=== PATIENT | male | born 1975 | race Caucasian/White ===

== ENCOUNTER 2021-08-29 00:18 | Day surgery (SDC) | payer OTHER, SELFPAY ==
[2021-08-21 12:57] VITALS: BMI 25.7
[2021-08-29 09:54] VITALS: BP 106/74; PULSE 84; RESP 18; TEMP 36.4; O2SAT 97
[2021-08-29] MEDS: LACTATED RINGERS 1,000 ML 150 ML IV CONT (10:03)
--- NOTE | 2021-08-29 10:14 | WPDANESEPPF ---
Anes - Initial Pre Proc Eval Procedure: Operation Date: 08/29/21 11:00 Proposed Procedures p Screening Colonoscopy - Perez Goodwin MD Date/Time: 08/29/21 10:14 Surgeon: Perez Goodwin MD Pre Op Diagnosis: family hx of colon ca, neoplasm screening Patient Data Age: 45 Gender: M Height: 1.88 m Weight: 90.3 kg Last Vital Signs Temp 36.4 C L 08/29/21 09:54 Pulse 84 08/29/21 09:54 Resp 18 08/29/21 09:54 BP 106/74 08/29/21 09:54 Pulse Ox 97 08/29/21 09:54 Allergies Allergy/AdvReac Type Severity Reaction Status Date / Time No Known Allergies Allergy Verified 08/29/21 09:52 Home Medications Medication Instructions Recorded Confirmed Type aspirin [Adult Low Dose Aspirin] 81 mg PO DAILY 08/21/21 08/21/21 History atorvastatin 10 mg PO DAILY 08/21/21 08/21/21 History ergocalciferol (vitamin D2) 1,250 mcg PO WEEKLY 08/21/21 08/21/21 History multivit with min-folic acid 1 tablet PO DAILY 08/21/21 08/21/21 History [Adult One Daily Multivitamin] Patient hx anesthesia problems: none Family hx anesthesia problems: none Results Review: All pre-operative results and documents have been reviewed as part of the pre-operative evaluation. [facility] Past Medical History Medical History (Updated 08/29/21 @ 10:14 by Stanley Cheng MD) Hyperlipidemia Social History Social History Smoking status: Never smoker Alcohol intake: current Drinks per week: 2 Living arrangements: with family Spiritual care concerns: No Anes - Eval Final PreProcedure Day of Procedure 08/29/21 10:14 Patient weight: overweight Heart: regular rate and rhythm Lungs: clear to auscultation Airway: Mallampati scale class II Neurological: alert and oriented Last oral intake: >/= 8 hours ASA classification: II Emergent: no Anesthetic plan: proceed Anesthesia type and monitoring: general GIVS and standard monitoring Results Review: All pre-operative results and documents have been reviewed as part of the pre-operative evaluation. Informed Consent: The patient's anesthetic plan and its attendant risks and benefits were discussed with the patient/family/POA. Questions were solicited and answers provided to the satisfaction of the patient/family/POA.
--- NOTE | 2021-08-29 10:28 | PM.HPGS ---
History of Present Illness History of Present Illness Consent: Risks, benefits, and alternatives have been discussed and questions answered. Patient agrees to proceed with procedure. Chief complaint: family hx of colon ca, neoplasm screening Narrative: Madi Wood is a 45 year old male here for first screening colonoscopy Review of Systems Constitutional: Constitutional: Denies headache(s) and Denies weakness Eyes: Eyes: Denies blurry vision ENT: Reports Normal hearing present, Denies headache(s) and Denies neck pain Cardiovascular: Cardiovascular: Denies chest pain and Denies dyspnea Respiratory: Respiratory: Denies dyspnea Gastrointestinal: Gastrointestinal: Reports no additional gastrointestinal complaints Genitourinary: Genitourinary: Denies dysuria Musculoskeletal: Musculoskeletal: Denies neck pain Integumentary/Breasts: Skin/Breast: Denies dry skin Neurologic: Reports Normal hearing present, Denies headache(s) and Denies weakness Psychiatric: Psychiatric: Denies anxiety Endocrine: Endocrine: Denies change in body appearance Hematologic/Lymphatic: Hematologic/Lymphatic: Denies easy bleeding Allergic/Immunologic: Allergic/Immunologic: Denies urticaria PMFSH Past Medical History Medical History (Updated 08/29/21 @ 10:29 by Perez Goodwin MD) Colon cancer screening Hyperlipidemia Social History Social History Smoking status: Never smoker Alcohol intake: current Drinks per week: 2 Living arrangements: with family Spiritual care concerns: No Meds Home Medications and Allergies Home Medications Medication Instructions Recorded Confirmed Type aspirin [Adult Low Dose Aspirin] 81 mg PO DAILY 08/21/21 08/21/21 History atorvastatin 10 mg PO DAILY 08/21/21 08/21/21 History ergocalciferol (vitamin D2) 1,250 mcg PO WEEKLY 08/21/21 08/21/21 History multivit with min-folic acid 1 tablet PO DAILY 08/21/21 08/21/21 History [Adult One Daily Multivitamin] Allergies Allergy/AdvReac Type Severity Reaction Status Date / Time No Known Allergies Allergy Verified 08/29/21 09:52 Vital Signs Vital Signs - 24 hr 08/29/21 09:54 Temperature 97.5 F L Pulse Rate 84 Respiratory Rate 18 Blood Pressure 106/74 Pulse Oximetry 97 Exam Const: General: comfortable and no acute distress HENMT: General nose exam: Normal nares present Eyes: General: appearance normal, both eyes and all related structures Neck: Neck: no JVD Resp: Auscultation: clear to auscultation bilaterally Cardio: Rate: regular rate Rhythm: regular rhythm GI: Inspection: non-distended GI Palp: Yes Soft to palpation Skin: General skin exam: normal color Neuro: General: gait normal Speech: normal speech Extrem: General: normal to inspection Psych: Mental Status: mental status grossly normal Assessment and Plan Assessment and plan (1) Colon cancer screening: Code(s): Z12.11 - Encounter for screening for malignant neoplasm of colon Status: Acute Assessment and Plan: colonoscopy
[2021-08-29 10:55] VITALS: BP 90/66; PULSE 76; RESP 17; O2SAT 98
[2021-08-29 11:05] VITALS: BP 91/70; PULSE 75; RESP 15; O2SAT 95
[2021-08-29 11:15] VITALS: BP 98/69; PULSE 65; RESP 16; O2SAT 98
[2021-08-29 11:25] VITALS: BP 104/72; PULSE 59; RESP 13; O2SAT 100
== END 2021-08-29 11:41 | disposition home or self-care (01) ==
PROVIDERS: PCP Family Medicine; Visit Provider Internal Medicine Gastroenterology
PROC: 0DJD8ZZ Inspection of Lower Intestinal Tract, Via Natural or Artificial Opening Endoscopic (ICD-10-PCS; CPT 45378; principal; 2021-08-29 11:00)
DX: Z12.11 Encounter for screening for malignant neoplasm of colon (principal); E78.5 Hyperlipidemia, unspecified; Z79.82 Long term (current) use of aspirin
CPT/HCPCS: 45378; J2001; J2704; J7120